=== PATIENT | male | born 1970 | race Caucasian/White ===

== ENCOUNTER 2019-12-04 13:20 | Emergency (ER) | payer OTHER, MEDICAID ==
[2019-12-04 14:07] VITALS: BP 159/95
--- NOTE | 2019-12-04 14:29 | UC ---
Throat Pain/Nasal Delmer HPI - HPI Summary HPI Summary: 49-year-old male presents with complaints of nasal congestion, runny nose, sneezing, and sinus pressure for 4 days. Patient states he has history of seasonal allergies and his symptoms are typical for this. Has not been taking any zpme-qhi-eczumix medications for his symptoms. Reports he has an appointment with his logistics planner in 2 days. States his employer is requiring him to be evaluated at this time. Denies fever, chills, ear pain, sore throat, cough, chest pain, or shortness of breath. - History of Current Complaint Chief Complaint: UCGeneralIllness Stated Complaint: SINUS ISSUES,ALLERGIES Time Seen by Provider: 12/04/19 14:13 Hx Obtained From: Patient Pain Intensity: 0 - Allergies/Home Medications Allergies/Adverse Reactions: Allergies Allergy/AdvReac Type Severity Reaction Status Date / Time bee venom protein (honey bee) Allergy Swelling Verified 12/04/19 14:08 Of Face,Lips,& Throat strawberry Allergy Swelling Verified 12/04/19 14:08 Of Face,Lips,& Throat Home Medications: Home Medications Fluticasone NASAL SPRAY 50MCG* [Flonase NASAL SPRAY 50MCG*] 2 spray BOTH NARES DAILY #1 btl 12/04/19 [Rx] PMH/Surg Hx/FS Hx/Imm Hx Previously Healthy: Yes - Denies significant PMH - Surgical History Surgical History: Yes Surgery Procedure, Year, and Place: wisdom teeth - Family History Family History: Denies significant FMH - Social History Occupation: Employed Full-time Lives: With Family Alcohol Use: Occasionally Substance Use Type: None Smoking Status (MU): Never Smoked Tobacco Review of Systems All Other Systems Reviewed And Are Negative: Yes Constitutional: Negative: Fever, Chills Eyes: Negative: Drainage, Eye Redness ENT: Positive: Nasal Discharge, Sinus Congestion, Sinus Pain/Tenderness. Negative: Sore Throat, Ear Ache Respiratory: Negative: Shortness Of Breath, Cough Cardiovascular: Negative: Chest Pain Gastrointestinal: Negative: Abdominal Pain, Vomiting, Diarrhea, Nausea Genitourinary: Positive: Negative Musculoskeletal: Positive: Negative Neurological/Mental Status: Positive: Negative Is Patient Immunocompromised?: No Physical Exam - Summary Physical Exam Summary: GENERAL APPEARANCE: Alert and cooperative adult male who appears to be in no acute distress. EYES: Conjunctiva clear. No drainage. EARS: External auditory canals and tympanic membranes clear, hearing grossly intact. NOSE: Moderate nasal congestion with clear discharge. THROAT: Pharynx normal. No tonsilar inflammation, swelling, exudate, or lesions. Uvula midline. NECK: Neck supple, non-tender without lymphadenopathy. CARDIAC: Normal S1 and S2. No S3, S4 or murmurs. Rhythm is regular. There is no peripheral edema, cyanosis or pallor. Extremities are warm and well perfused. Capillary refill is less than 2 seconds. Peripheral pulses intact. LUNGS: Clear to auscultation without rales, rhonchi, wheezing or diminished breath sounds. ABDOMEN: Positive bowel sounds. Soft, nondistended, nontender. No guarding or rebound. No masses or hepatosplenomegally. MUSKULOSKELETAL: ROM intact to all extremities. No joint erythema or tenderness. Normal muscular development. Normal gait. SKIN: Skin normal color, texture and turgor with no lesions or eruptions. Triage Information Reviewed: Yes Vital Signs: Initial Vital Signs Temp 98.5 F 12/04/19 14:01 Pulse 86 12/04/19 14:01 Resp 18 12/04/19 14:01 BP 159/95 12/04/19 14:01 Pulse Ox 96 12/04/19 14:01 Vital Signs Reviewed: Yes Throat Pain/Nasal Course/Dx - Course Course Of Treatment: 49-year-old male presents with complaints of nasal congestion, runny nose, sneezing, and sinus pressure for 4 days. Patient states he has history of seasonal allergies and his symptoms are typical for this. Has not been taking any avyd-onj-emnxgdu medications for his symptoms. Reports he has an appointment with his logistics planner in 2 days. States his employer is requiring him to be evaluated at this time. Denies fever, chills, ear pain, sore throat, cough, chest pain, or shortness of breath. Afebrile. Hypertensive otherwise vital signs stable. Patient had moderate nasal congestion with clear nasal discharge, normal TMs, normal pharynx without tonsillar swelling or exudate, no cervical lymphadenopathy, clear bilateral breath sounds, and otherwise unremarkable exam. Discussed with the patient that his symptoms are consistent with an allergic rhinitis, cannot fully exclude the possibility of a viral upper respiratory infection although unlikely given he has been afebrile. Recommend conservative treatment for allergic rhinitis including fluticasone nasal spray and an [id number] nondrowsy antihistamine. To keep his appointment with his logistics planner as scheduled. Anticipatory guidance and warning symptoms reviewed of the patient. Verbalized understanding and agrees with care. - Differential Dx/Diagnosis Differential Diagnosis/HQI/PQRI: Sinusitis, URI Provider Diagnosis: Rhinosinusitis Discharge ED - Sign-Out/Discharge Documenting (check all that apply): Patient Departure All imaging exams completed and their final reports reviewed: No Studies - Discharge Plan Condition: Stable Disposition: HOME Prescriptions: Fluticasone NASAL SPRAY 50MCG* [Flonase NASAL SPRAY 50MCG*] 2 spray BOTH NARES DAILY #1 btl Patient Education Materials: Allergic Rhinitis (ED) Forms: *Work Release Referrals: Le Simpson MD [Primary Care Provider] - Additional Instructions: Your history and exam are consistent with rhinosinusitis most likely due to your seasonal allergies. Use a saline rinse kit such as Neti Pot or NeilMed at least twice a day to help thin secretions and promote drainage of the sinuses. Use fluticasone (Flonase) nasal spray 2 sprays each nostril once daily. Take over the counter non-drowsy antihistamine (Zyrtec, Nicole, Claritin) according to directions as needed for pain or fever. Keep your appointment with your logistics planner as scheduled. Seek immediate medical attention in the emergency room if you have fever greater than 100.5 F despite taking acetaminophen or ibuprofen, have chest pain , difficulty breathing, are unable to swallow, or have any worsening of symptoms. - Billing Disposition and Condition Condition: STABLE Disposition: Home
== END 2019-12-04 14:45 | disposition home or self-care (01) ==
LOC: UCCORT 13:20
DX: J32.9 Chronic sinusitis, unspecified (principal); Z91.018 Allergy to other foods; Z91.030 Bee allergy status
CPT/HCPCS: 99212; G0463